=== PATIENT | female | born 1945 | race Caucasian/White ===

== ENCOUNTER 2017-03-19 08:52 | Outpatient (CLI) | payer MEDICARE, OTHER ==
--- NOTE | 2017-03-19 10:39 | RAD ---
CHEST TWO VIEWS: History: Dyspnea. Comparison: 01-20-17 FINDINGS: Lungs are clear. No pneumothorax or effusion. Cardiac silhouette and mediastinal contours are normal . IMPRESSION: No acute intrathoracic abnormality. POS: [facility]
== END 2017-03-19 08:53 | disposition home or self-care (01) ==
LOC: RAD 08:52
PROVIDERS: ATTEND Internal Medicine Critical Care Medicine
DX: R06.00 Dyspnea, unspecified (principal)
CPT/HCPCS: 71020

== ENCOUNTER 2017-05-10 08:14 | Outpatient (CLI) | payer MEDICARE, OTHER ==
--- NOTE | 2017-05-10 09:22 | RAD ---
PA AND LATERAL CHEST: HISTORY: Dyspnea. COMPARISON: 03/19/17 study. FINDINGS: Heart size is within normal limits. There are atherosclerotic changes of the aorta. The lungs are c lear of any infiltrates. There are arthritic changes of the spine. The bones are demineralized. IMPRESSION: Stable chest. POS: [facility]
== END 2017-05-10 08:15 | disposition home or self-care (01) ==
LOC: RAD 08:14
PROVIDERS: ATTEND Internal Medicine Critical Care Medicine
DX: R06.00 Dyspnea, unspecified (principal)
CPT/HCPCS: 71020

== ENCOUNTER 2017-10-11 09:02 | Outpatient (CLI) | payer MEDICARE | END 2017-10-11 09:03 | disposition home or self-care (01) | LOC: BICMAMMO 09:02 | DX: R92.1 Mammographic calcification found on diagnostic imaging of breast (principal); Z80.3 Family history of malignant neoplasm of breast | CPT/HCPCS: 77065; G0279 ==

== ENCOUNTER 2018-02-27 11:06 | Outpatient (CLI) | payer MEDICARE ==
--- NOTE | 2018-02-27 13:19 | RAD ---
CHEST 2 VIEWS: COMPARISON: 05/10/17. HISTORY: Dyspnea. FINDINGS: Atherosclerosis of the aortic knob. Pulmonary vessels and hilum are normal. Costophrenic angles are clear. Hyperinflation, without consolidation or mass. No pneumothorax or osseous abnormalities. IMPRESSION: Atherosclerosis. No acute cardiopulmonary process. POS: [facility]
== END 2018-02-27 11:07 | disposition home or self-care (01) ==
LOC: RAD 11:06
PROVIDERS: ATTEND Internal Medicine Critical Care Medicine
DX: R06.00 Dyspnea, unspecified (principal); I70.0 Atherosclerosis of aorta
CPT/HCPCS: 71046

== ENCOUNTER 2019-02-26 09:42 | Outpatient (CLI) | payer MEDICARE ==
--- NOTE | 2019-02-26 11:05 | RAD ---
XR Chest Pa Lat @ [facility] History: Dyspnea Comparison: Radiograph 2018 Findings: Lungs are clear. No pneumothorax or effusion. Mild lung hyperinflation. No acute osseous ab normality. Calcific tendinosis rotator cuff. Cardiac silhouette and mediastinal contours are within normal limit s. Impression: No acute intrathoracic abnormality.
== END 2019-02-26 09:43 | disposition home or self-care (01) ==
LOC: RAD 09:42
PROVIDERS: ATTEND Internal Medicine Critical Care Medicine
DX: R06.00 Dyspnea, unspecified (principal)
CPT/HCPCS: 71046

== ENCOUNTER 2025-05-20 10:43 | Outpatient (CLI) | payer MEDICARE | END 2025-05-20 10:44 | disposition home or self-care (01) | LOC: SCSBT 10:43 | PROVIDERS: ATTEND Internal Medicine | DX: M81.0 Age-related osteoporosis without current pathological fracture (principal); Z78.0 Asymptomatic menopausal state; M85.88 Other specified disorders of bone density and structure, other site | CPT/HCPCS: 77080 ==